=== PATIENT | female | born 1970 | race Two or more races ===

== ENCOUNTER 2022-10-15 11:55 | Emergency (ER) | payer MEDICAID ==
[~2022-10-15] VITALS: Ht 162.6 cm; Wt 82.0 kg
[2022-10-15] MEDS ORDERED: DIPHENHYDRAMINE 50MG/ML VIAL IV STA (12:11)
[2022-10-15] MEDS ORDERED: SODIUM CHLORIDE 0.9% 1,000 ML IV ONE (12:15)
[2022-10-15] MEDS ORDERED: METOCLOPRAMIDE HCL 10MG/2ML VIAL IV ONE (12:15)
[2022-10-15] MEDS ORDERED: IOHEXOL-350 100 ML BOTTLE ONE (13:02)
[2022-10-15 13:10] LABS: BASOPHILS % 0.9 % (0.0-2.0); EOSINOPHILS % 1.6 % (0.0-5.0); HEMATOCRIT. 38.4 % (36.0-48.0); HEMOGLOBIN. 12.8 g/dL (12.0-16.0); LYMPHOCYTES % 50.1 % (20.0-50.0); MEAN PLATELET VOLUME 8.7 fl (7.4-10.4); MONOCYTES % 6.3 % (2.0-8.0); NEUTROPHILS % 41.1 % (40.0-76.0); PLATELET 261 x1000/uL (130-400); RED BLOOD CELL COUNT 4.93 mill/uL (4.2-5.4); RED CELL DISTRIBUTION WIDTH 14.8 % (11.6-14.6)
[2022-10-15 13:17] LABS: CHLORIDE 109 mEq/L (98-107)
[2022-10-15 13:22] LABS: CLARITY URINE CLEAR (CLEAR); COLOR URINE YELLOW (YELLOW); KETONES URINE NEGATIVE (NEGATIVE); LEUKOCYTE ESTERASE URINE TRACE (NEGATIVE); NITRITE URINE NEGATIVE (NEGATIVE); OCCULT BLOOD URINE NEGATIVE (NEGATIVE); PROTEIN URINE NEGATIVE (NEGATIVE); SPECIFIC GRAVITY URINE 1.013 (1.005-1.030); UROBILINOGEN URINE 0.2 E.U./dL (0.2-1.0)
[2022-10-15 13:30] LABS: CREATINE KINASE 52 IU/L (26-192); ETHANOL BLOOD < 10 mg/dL
[2022-10-15] MEDS ORDERED: KETOROLAC 30MG/ML VIAL IV ONE (13:30)
[2022-10-15 13:34] LABS: *AMPHETAMINES SCREEN URINE NEGATIVE (NEGATIVE); *BARBITURATES SCREEN URINE NEGATIVE (NEGATIVE); *BENZODIAZEPINES SCREEN URINE NEGATIVE (NEGATIVE); *COCAINE SCREEN URINE NEGATIVE (NEGATIVE); CANNABINOID URINE SCREEN NEGATIVE (NEGATIVE); METHADONE URINE SCREEN NEGATIVE (NEGATIVE); OPIATES URINE SCREEN NEGATIVE (NEGATIVE); PHENCYCLIDINE URINE SCREEN NEGATIVE (NEGATIVE)
[2022-10-15 13:44] LABS: HCG SCREEN NEGATIVE
[2022-10-15 14:36] LABS: PROTHROMBIN TIME 10.6 sec (9.6-11.0)
[2022-10-15 16:00] VITALS: BP 120/92
== END 2022-10-15 17:15 | disposition home or self-care (01) ==
LOC: ER 11:55 → EDBEDREQ 16:58 → ER 17:15
DX: R51.9 Headache, unspecified (principal); R20.0 Anesthesia of skin; Z86.73 Personal history of transient ischemic attack (TIA), and cerebral infarction without residual deficits; Z20.822 Contact with and (suspected) exposure to COVID-19
CPT/HCPCS: 36415; 70450; 70496; 70498; 71045; 80053; 80305; 80320; 81003; 82550; 84484; 84703; 85025; 85610; 86850; 86900; 86901; 87426; 93005; 96361; 96374; 96375; 99291; C9803; J1200; J1885; J2765; J7030; Q9967; G0480